=== PATIENT | female | born 1970 | race Caucasian/White ===

== ENCOUNTER 2017-08-05 17:12 | Emergency (ER) | payer OTHER ==
[2017-08-05 17:34] VITALS: BP 150/81
[2017-08-05] MEDS ORDERED: methylPREDNISolone ACETATE 80 MG/ML VIAL IM ONE (17:48)
[2017-08-05] MEDS: DEXAMETHASONE SOD PHOS 4 MG/ML VIAL IM ONE (17:50)
[2017-08-05] MEDS: methylPREDNISolone ACETATE 80 MG/ML VIAL IM PRN (17:50)
[2017-08-05] MEDS: Lidocaine 2% 20ml Vial IP ONE (17:50)
--- NOTE | 2017-08-05 18:40 | ED Physician Documentation ---
Low Back Pain - HISTORIAN Historian: patient - HPI Stated Complaint: Back/Hip/Leg pain Chief Complaint: Lower Extremity Problem Additional Information: chronic low back pain, sciatica symptoms last 24 hours left leg History: back pain Onset: days ago (1) Duration: continues in ED Recent Injury: No Context: other (none) Where: home Other Injuries: other (pain down back of left leg) Severity: moderate Quality: sharp Front/Back of Body, Lg (Color): 1 - pain Associated Symptoms: difficulty walking Worsened By:: other (reclining) Relieved By: remaining still (helps but does not alleviate) Further Comments: no - ROS CONST: no problems CVS/RESP: none EYES/ENT: none MS/SKIN/LYMPH: leg pain Neuro/Psych: none GI/: denies: abdominal pain, black stools - PAST HX Past History: back injury, back pain Other History: peptic ulcer disease, other (asthma) Surgeries/Procedures: cholecystectomy Immunizations: referred to PCP Allergies/Adverse Reactions: Allergies Allergy/AdvReac Type Severity Reaction Status Date / Time aspirin Allergy Verified 08/05/17 17:34 codeine Allergy Verified 08/05/17 17:34 Home Medications: Ambulatory Orders Medication Instructions Recorded Albuterol Sulfate [Proair 90 mcg IH DIRECTED 06/30/15 Respiclick] Pantoprazole Sodium [Protonix] 40 mg PO 0700 06/30/15 Umeclidinium [place] [Incruse 1 puff INH DAILY 08/05/17 Ellipta] - SOCIAL HX Smoking History: cigarettes Alcohol Use: occasionally Drug Use: none - FAMILY HX Family History: no significant history - VITAL SIGNS Vital Signs: Vital Signs Temp Pulse Resp BP Pulse Ox 98.3 F 80 19 150/81 95 08/05/17 18:40 08/05/17 18:40 08/05/17 18:40 08/05/17 18:40 08/05/17 18:40 - REVIEWED ASSESSMENTS Nursing Assessment Reviewed: Yes Vitals Reviewed: Yes Progress - Results/Orders Results/Orders: no testing ordered - Progress Progress: 1 cc of a mixture of 1 cc 80 mg depo medrol, 2 cc of 4 mg/cc decadron and 2 cc of 2% plain lidocaine injected into L1 left, L3 left, L5-S1 left, L3 right and L5-S1 right in a triggerpoint manner under sterile conditions with a 25 G 1 1/2 " needle. Well tolerated, immediate relief, band aids applied. Critical Care Note - Critical Care Note Total Time (mins): 0 ED Results Lab/Radiology - Lab Results Lab Results: none taken - Radiology Radiology Impressions: none taken - Orders Orders: ED Orders Category Date Time Status Dexamethasone Sod Phosphate [Decadron] Med 08/05/17 17:46 Discontinued 8 mg IM NOW ONE Lidocaine 2% 20ml Vial [Xylocaine] Med 08/05/17 17:46 Discontinued 20 mg IP NOW ONE methylPREDNISolone ACETATE [Depo-Medrol] Med 08/05/17 17:48 Discontinued 80 mg IM .STK-MED ONE methylPREDNISolone ACETATE [Depo-Medrol] Med 08/05/17 17:46 Discontinued 80 mg IM NOW PRN Low Back Pain/Injury - Physical Exam General Appearance: alert, moderate distress EENT: eye inspection normal, ENT inspection normal, pharynx normal, no signs of dehydration, JOSLYN, no nystagmus, TM's nml Neck: non-tender, painless ROM, trachea midline Resp/CVS: chest non-tender, breath sounds nml, heart sounds nml, no resp. distress, lungs clear, reg. rate & rhythm Abdomen: non-tender, no organomegaly, no pulsatile mass Back: other (tenderness L1 left, L3 left, L5-S1 left, L3 right, L5-S1 right). No: vertebral point-tendernes Straight Leg Raising: Positive Left (at 30 degrees), Positive Right (at 60 degrees) Neuro/Psych: oriented x3, motor nml, sensation nml, reflexes nml Skin: warm/dry, normal color Extremities: non-tender, normal range of motion, no evidence of injury, no edema Discharge Clincal Impression: Low back pain Qualifiers: Chronicity: chronic Back pain laterality: bilateral Sciatica presence: with sciatica Sciatica laterality: sciatica of left side Qualified Code(s): M54.42 - Lumbago with sciatica, left side Sciatica Qualifiers: Laterality: left Qualified Code(s): M54.32 - Sciatica, left side Referrals: Jerry Lindquist MD [Primary Care Provider] - 2 Days Comments: discharged in stable condition with prescription for Celebrex 200 mg #10 1 p.o. daily with food Condition: Stable Decision to Admit: NO Decision Time: 18:39
== END 2017-08-05 18:40 ==
LOC: ED 17:12
DX: M54.32 Sciatica, left side (principal); M54.31 Sciatica, right side
CPT/HCPCS: J1040; J1100; 20553; 99283

== ENCOUNTER 2018-03-21 08:19 | Emergency (ER) | payer SELFPAY ==
[2018-03-21] MEDS: IPRATROPIUM/ALBUTEROL SULFATE 3 ML AMPUL.NEB NEB ONE ×2 (09:09→09:12)
[2018-03-21] MEDS: BUDESONIDE 0.5MG/2ML AMPUL.NEB NEB ONE ×2 (09:10→09:12)
[2018-03-21] MEDS: ALBUTEROL SULFATE 2.5 MG/3 ML AMPUL.NEB NEB ONE ×2 (09:11→09:13)
[2018-03-21 10:17] VITALS: BP 131/78
--- NOTE | 2018-03-29 19:37 | ED Physician Documentation ---
General Adult - HISTORIAN Historian: patient - HPI Stated Complaint: short of breath Chief Complaint: General Adult Additional Information: Wheezing for a week. Out of some of her meds for a month. Continues to smoke. No sweats or fever. Cough sometimes productive of small amounts clear mucus. No other modifying factors or associated signs. - ROS CONST: no problems - PAST HX Past History: asthma Allergies/Adverse Reactions: Allergies Allergy/AdvReac Type Severity Reaction Status Date / Time aspirin Allergy Verified 03/21/18 08:37 bee venom protein (honey bee) Allergy Verified 03/21/18 08:37 codeine Allergy Verified 03/21/18 08:37 shellfish derived Allergy Verified 03/21/18 08:37 Home Medications: Ambulatory Orders Medication Instructions Recorded Albuterol Sulfate [Proair 90 mcg IH DIRECTED 06/30/15 Respiclick] Umeclidinium [place] [Incruse 1 puff INH DAILY 08/05/17 Ellipta] Azithromycin [Zithromax] 250 mg PO DAILY #6 tablet 03/21/18 Budesonide/Formoterol Fumarate 1 inh IH BID 03/21/18 [Symbicort 160-4.5 Mcg Inhaler] Ipratropium/Albuterol Sulfate 3 ml NEB Q6H PRN #100 ampul.neb 03/21/18 [Duoneb] predniSONE [Deltasone] 20 mg PO QD #7 tablet 03/21/18 - SOCIAL HX Smoking History: cigarettes - FAMILY HX Family History: No - VITAL SIGNS Vital Signs: Vital Signs Temp Pulse Resp BP Pulse Ox 98.0 F 98 H 20 131/78 91 L 03/21/18 08:22 03/21/18 10:15 03/21/18 10:15 03/21/18 10:15 03/21/18 10:15 - REVIEWED ASSESSMENTS Nursing Assessment Reviewed: Yes Vitals Reviewed: Yes Progress - Progress Progress: Improved after two neb treatments including budesonide. Encouraged to stop smoking. ED Results Lab/Radiology - Orders Orders: ED Orders Category Date Time Status Albuterol Sulfate [Ventolin] Med 03/21/18 08:55 Discontinued 2.5 mg NEB .STK-MED ONE Albuterol Sulfate [Ventolin] Med 03/21/18 08:55 Discontinued 2.5 mg NEB NOW ONE Budesonide [Pulmicort] Med 03/21/18 08:29 Discontinued 0.5 mg NEB .STK-MED ONE Budesonide [Pulmicort] Med 03/21/18 08:40 Discontinued 0.5 mg NEB BID ONE Ipratropium/Albuterol Sulfate [Duoneb] Med 03/21/18 08:29 Discontinued 3 ml NEB .STK-MED ONE Ipratropium/Albuterol Sulfate [Duoneb] Med 03/21/18 08:40 Discontinued 3 ml NEB NOW ONE HI FLOW NEBULIZER TX - INITIAL Routine Ther 03/21/18 Completed HIGH FLOW NEBULIZER Routine Ther 03/21/18 Completed HIGH FLOW NEBULIZER TX Routine Ther 03/21/18 Completed HIGH FLOW NEBULIZER TX Routine Ther 03/21/18 Completed OXIMETRY-SINGLE CHECK Routine Ther 03/21/18 Completed General Adult Physical Exam - PHYSICAL EXAM GENERAL APPEARANCE: moderate distress (Pulse ox high 80's on RA.) EENT: eye inspection normal, ENT inspection normal, pharynx normal, no signs of dehydration NECK: normal inspection, supple RESPIRATORY: wheezes (high pitched throughout. decreased breath sounds) CVS: reg rate & rhythm, heart sounds normal BACK: normal inspection, no CVA tenderness SKIN: warm/dry, normal color EXTREMITIES: normal range of motion (gait and stance), no evidence of injury NEURO: CN's nml as tested, motor nml, sensation nml Discharge Clincal Impression: Wheezing, Asthma Prescriptions: Azithromycin [Zithromax] 250 mg PO DAILY #6 tablet Ipratropium/Albuterol Sulfate [Duoneb] 3 ml NEB Q6H PRN #100 ampul.neb PRN Reason: Wheezing predniSONE [Deltasone] 20 mg PO QD #7 tablet Referrals: Jerry Lindquist MD [REFERRING] - 2 Days Condition: Good Disposition: 01 HOME, SELF-CARE Decision to Admit: NO Decision Time: 09:34
== END 2018-03-21 09:34 | disposition home or self-care (01) ==
LOC: ED 08:19
DX: R06.2 Wheezing (principal); J45.909 Unspecified asthma, uncomplicated
CPT/HCPCS: 94640; 94760; J7626; 99284